=== PATIENT | female | born 1965 ===

== ENCOUNTER 2018-03-12 17:16 | Inpatient (IN) | payer MEDICAID, OTHER ==
[2018-03-12 17:44] VITALS: O2SAT 99
--- NOTE | 2018-03-12 19:19 | ED PDOC ---
HPI: Psych/Substance Abuse Time Seen by Provider: 03/12/18 18:03 Chief Complaint (Nursing): Psychiatric Evaluation Chief Complaint (Provider): Psychiatric evaluation History Per: Patient History/Exam Limitations: no limitations Additional Complaint(s): 53yo female, comes to ER stating she is depressed and has been having suicidal ideation x 1 week. She also reports left sided abdominal pain but denies any nausea, vomiting, or diarrhea. Patient is tearful during interview. Otherwise, she offers no additional medical complaints. Past Medical History Reviewed: Historical Data, Nursing Documentation, Vital Signs Vital Signs: Last Vital Signs Temp 98.8 F 03/12/18 17:40 Pulse 84 03/12/18 17:40 Resp 18 03/12/18 17:40 BP 142/85 03/12/18 17:40 Pulse Ox 99 03/12/18 17:40 - Medical History PMH: Depression - Surgical History Surgical History: No Surg Hx - Family History Family History: States: No Known Family Hx - Allergies Allergies/Adverse Reactions: Allergies Allergy/AdvReac Type Severity Reaction Status Date / Time No Known Allergies Allergy Verified 03/12/18 17:41 Review of Systems ROS Statement: Except As Marked, All Systems Reviewed And Found Negative Constitutional: Negative for: Fever, Chills Gastrointestinal: Negative for: Nausea, Vomiting, Abdominal Pain, Diarrhea Psych: Positive for: Depression, Suicidal ideation Physical Exam - Reviewed Nursing Documentation Reviewed: Yes Vital Signs Reviewed: Yes - Physical Exam Appears: Positive for: Non-toxic Head Exam: Positive for: ATRAUMATIC, NORMAL INSPECTION, NORMOCEPHALIC Skin: Positive for: Normal Color, Warm, DRY Eye Exam: Positive for: Normal appearance Neck: Positive for: Supple Cardiovascular/Chest: Positive for: Regular Rate, Rhythm Respiratory: Positive for: Normal Breath Sounds Gastrointestinal/Abdominal: Positive for: Tenderness (left abdominal tenderness) . Negative for: Mass, Guarding, Rebound Back: Positive for: Normal Inspection Extremity: Positive for: Normal ROM. Negative for: Pedal Edema Neurologic/Psych: Positive for: Alert, Oriented, Mood/Affect (tearful). Negative for: Motor/Sensory Deficits - Laboratory Results Result Diagrams: 03/12/18 19:15 03/12/18 19:15 - ECG O2 Sat by Pulse Oximetry: 99 (RA) Pulse Ox Interpretation: Normal Medical Decision Making Medical Decision Making: Impression: Abdominal pain, psychiatric evaluation Plan: * Labs * EKG * CT Abdomen/pelvis w/ IV contrast * Urinalysis * Chest x-ray Labs normal. Abdominal CT normal. Crisis evaluation completed. Scribe Attestation: Documented by Lashawn Edouard acting as a scribe for LUI Morales. Provider Attestation: All medical record entries made by the Scribe were at my direction and personally dictated by me. I have reviewed the chart and agree that the record accurately reflects my personal performance of the history, physical exam, medical decision making, and the department course for this patient. I have also personally directed, reviewed, and agree with the discharge instructions and disposition. Disposition - Clinical Impression Clinical Impression: Depression - Patient ED Disposition Is Patient to be Admitted: Yes Counseled Patient/Family Regarding: Diagnosis, Need For Followup - Disposition Disposition Time: 21:58 Condition: STABLE Instructions: Depression Forms: Agent Panda (Telugu) - Pt Status Changed To: Hospital Disposition Of: Inpatient - Admit Certification Admit to Inpatient:: After my assessment, the patient will require hospitalization for at least two midnights. This is because of the severity of symptoms shown, intensity of services needed, and/or the medical risk in this patient being treated as an outpatient. - POA Present On Arrival: None
[2018-03-12 19:20] LABS: HEMOGLOBIN 13.8 g/dL (12.0-16.0); MEAN CELL VOLUME 88.9 fl (81.0-99.0); MEAN CORPUSCULAR HEMOGLOBIN 30.3 pg (27.0-31.0); MEAN CORPUSCULAR HGB CONC 34.1 g/dL (33.0-37.0); RBC 4.55 Mil/uL (3.80-5.20); WHITE BLOOD COUNT 6.9 K/uL (4.8-10.8)
[2018-03-12 19:22] LABS: SQUAMOUS EPITHIAL 1 /hpf (0-5); URINE BACTERIA RARE (<OCC); URINE BILIRUBIN NEGATIVE (NEGATIVE); URINE CLARITY CLEAR (Clear); URINE COLOR YELLOW (YELLOW); URINE GLUCOSE (UA) NEG (Normal); URINE LEUKOCYTE ESTERASE NEG Leu/uL (Negative); URINE PROTEIN NEGATIVE (NEGATIVE); URINE UROBILINOGEN 0.2-1.0 mg/dL (0.2-1.0)
[2018-03-12 19:23] LABS: URINE BLOOD SMALL (NEGATIVE)
[2018-03-12 19:28] LABS: ALB/GLOB RATIO 1.1 (1.0-2.1); ALBUMIN 3.9 g/dL (3.5-5.0); ALT/SGPT 43 U/L (9-52); AST/SGOT 34 U/L (14-36); BLOOD UREA NITROGEN 13 mg/dl (7-17); CALCIUM 8.9 mg/dL (8.4-10.2); GFR NON-AFRICAN AMERICAN > 60
[2018-03-12 19:43] LABS: BARBITURATES, UR NEGATIVE (NEGATIVE); BENZODIAZEPINES, UR NEGATIVE (NEGATIVE); OPIATES, UR NEGATIVE (NEGATIVE); PHENCYCLIDINE, UR NEGATIVE (NEGATIVE)
[2018-03-12] MEDS ORDERED: Sodium Chloride 0.9% 50 ML IV ONE (20:30)
[2018-03-12] MEDS ORDERED: Iohexol 300 100 ML IJ ONE (20:30)
[2018-03-12] MEDS ORDERED: Alum-Mag Hydrox-Simethicone Susp (30 mL) PO PRN (22:58)
[2018-03-12] MEDS ORDERED: DiphenhydrAMINE 50 mg/ml Inj IM PRN (22:58)
[2018-03-12] MEDS ORDERED: Magnesium Hydroxide Susp 30 ml UD PO PRN (22:58)
--- NOTE | 2018-03-12 23:08 | PCM.BM ---
<Avtar De La Cruz - Last Filed: 03/12/18 23:21> Treatment Plan Problems - Problems identified on initial assessmt Hopelessness/Helplessness Date Initiated: 03/12/18 Time Initiated: 23:07 Status: Active Feelings of Worthlessness Date Initiated: 03/12/18 Time Initiated: 23:07 Assessment reference: NA Status: Active Altered Sleep Patterns Date Initiated: 03/12/18 Time Initiated: 23:07 Assessment reference: NA Status: Active Command/Auditory Hallucinations Date Initiated: 03/12/18 Time Initiated: 23:22 Assessment reference: NA Status: Active Visual Hallucinations Date Initiated: 03/12/18 Time Initiated: 23:22 Assessment reference: NA Status: Active Treatment assets and liabiliti Patient Assests: cooperative, ADL independent, physically healthy, good support system, negotiates basic needs Patient Liabilities: language/speech - Milieu Protocol Maintain good personal hygiene: every shift Encourage regular showers, every shift Remind patient to perform daily oral care, every shift Assist patient to perform ADL's Maintain personal safety: daily Educate patient to report safety concerns to staff, daily Monitor environment for contraband/sharps Medication safety: Monitor for expected outcome, potential side effects: daily, Assess barriers to learning: daily, Assess readiness for medication education: daily <Linh Chadwick - Last Filed: 03/13/18 09:57> - Diagnosis (1) Major depressive disorder with psychotic features Status: Acute Interventions: Medication management, Individual and group therapy, Psychoeducation 03/13/18 09:58 <Kristine Strong - Last Filed: 03/14/18 16:30> Family Contact Family involvement: Family/SO is involved Family contact: Patient agrees to contact, Family has been contacted by patient, Telephone contact initiated by staff Family contact name: Elizabeth -sister Family contacted how many times per week?: 2 Family contact comment: [phone] - Goals for Treatment Patient goals for treatment: Pt to be encouraged to attend activity and clinical groups 3-5x per week to decrease symptoms of paranoia, delusions and employ reality testing. Pt to be encouraged to participate in group milieu to develop coping skills to reduce psychiatric hospitalizations and further decompensation. Coordinate discharge resources needs by providing referral for psychiatric treatment follow up in the community. Discharge/Continuing Care - Education Needs Education Needs: Family Medication, Family Diagnosis/Disease Process, Family Coping Skills, Family Placement options, Family Community resources, Family Activities of Daily Living, Family Health Practices/Safety, Family Personal Hygiene/Grooming, Family Aftercare Safety Plan, Patient Medication, Patient Diagnosis/Disease Process, Patient Coping Skills, Patient Placement options, Patient Community resources, Patient Activities of Daily Living, Patient Health Practices/Safety, Patient Personal Hygiene/Grooming, Patient Aftercare Safety Plan - Discharge Discharge Criteria: Tolerates medication w/o severe side effects, Free of paranoid thoughts, Free of agitation, Normal sleep pattern, Ability to care for self, Reduction of target symptoms Discharge to:: Home - Additional Comments 03/14/18 16:25 Pt seen and discussed in team meeting note. Pt's reason for hospitalization reviewed and discussed. Pt reported being referred tot hospital due to "I felt really bad." Pt reported feeling "bad." Pt advised to further describe "bad." Pt reported "like sadness." Pt presents with flat affect and tearful. Pt asking the doctor if she will be cured. Pt reported visual hallucinations stating she saw shadows this morning of a man in a wheelchair. Pt denied auditory hallucinations. Pt's social and medical issues reviewed. Pt reported having poor social support as most of her family reside in [place]. Pt reported she has one sister who she communicates often withRossana Johnson ([phone]). Pt reported no hx of psychiatric treatment in the , only in [place]. Pt's medications reviewed and discussed. Tx plan reviewed and pt verbalized agreement. SW to continue to follow case. Pt signed release consent form for fiction and nonfiction writer prose to contact her sisterElizabeth for additional information. - Treatment Team Participation Discussed with Family/SO: No Was Patient/Family/SO present at Treatment Team Meeting: Yes
[2018-03-13 08:22] LABS: T4 8.73 ug/dl (5.5-11.0)
--- NOTE | 2018-03-13 08:38 | RAD ---
Date of service: 03/12/2018 HISTORY: SI COMPARISON: No prior. FINDINGS: LUNGS: The lungs are well inflated and clear. PLEURA: No significant pleural effusion identified, no pneumothorax apparent. CARDIOVASCULAR: Normal. OSSEOUS STRUCTURES: No significant abnormalities. VISUALIZED UPPER ABDOMEN: Normal. OTHER FINDINGS: None. IMPRESSION: No active pulmonary disease.
--- NOTE | 2018-03-13 09:09 | CARD ---
APPROVED REPORT Date of service: 03/12/2018 <Conclusion> Sinus bradycardia Low voltage QRS Cannot rule out Inferior infarct, age undetermined T wave abnormality, consider lateral ischemia Abnormal ECG
--- NOTE | 2018-03-13 10:04 | PCM.PSYCH ---
Initial Psychiatric Evaluation - Initial Psychiatric Evaluation Type of Admission: Voluntary Legal Status: Capacity Chief Complaint (in patient's own words): "I'm depressed." Patient's Reaction to Hospitalization: HPI: 53 yo female, presents w/ worsening depression, daily panic attacks, anxiety, poor concentration, CAH of a man telling her to grab her kitchen knives and kill herself and VH of this man. +Poor sleep +Poor concentration +Hopelessness. She states that she has suicidal thoughts, but does not want to act on them because of her druze beliefs. Patient was tearful and distraught during interview. PPHx: H/o treatment w/ Prozac >1 yr ago from her PMD in [place]; no h/o psychiatric hospitalization or suicide attempts MHx: Allergies SHx: Lives alone, from [place], denies drugs/etoh/cig use; 1 adult daughter and two grandchildren in [place]; Denies h/o abuse; Works as a vocational education teacher; completed high school ALL: Fish, Shellfish, Iodine FHx: Mothers/sisters/aunts w/ Depression and Anxiety Current Medications: Active Medications Generic Name Dose Route Start Last Admin Trade Name Freq PRN Reason Stop Dose Admin Acetaminophen 650 mg 03/12/18 22:58 Tylenol 325mg Tab PO Q4 PRN Pain, moderate (4-7) Al Hydrox/Mg Hydrox/Simethicone 30 ml 03/12/18 22:58 Maalox Plus 30 Ml PO Q4 PRN Dyspepsia Diphenhydramine HCl 50 mg 03/12/18 22:58 Benadryl IM Q6 PRN Extrapyramidal S/S Unable PO Diphenhydramine HCl 50 mg 03/12/18 22:58 Benadryl PO Q6 PRN Extrapyramidal Symptoms Diphenhydramine HCl 50 mg 03/12/18 23:03 Benadryl PO HS PRN Sleep Fluoxetine HCl 20 mg 03/13/18 09:45 Prozac PO DAILY COLLEEN Haloperidol 5 mg 03/12/18 22:58 Haldol PO Q4 PRN Agitation Haloperidol Lactate 5 mg 03/12/18 22:58 Haldol IM Q4 PRN Agitation, Unable to Take PO Lorazepam 1 mg 03/12/18 22:58 Ativan IM Q8 PRN Anxiety/Agitation,Unable PO Lorazepam 1 mg 03/12/18 22:58 Ativan PO Q8 PRN Anxiety/Agitation Magnesium Hydroxide 30 ml 03/12/18 22:58 Milk Of Magnesia PO HS PRN Constipation Risperidone 0.5 mg 03/13/18 22:00 Risperdal Tab PO HS [facility] Past Psychiatric History - Past Psychiatric History Pertinent Medical Hx (Current Medical&Sleep Prob, Allergies): Allergies Allergy/AdvReac Type Severity Reaction Status Date / Time FISH Allergy RASH Verified 03/12/18 23:37 iodine Allergy RASH Verified 03/12/18 23:37 Ketotifen Fumarate [Zaditor] 1 drop OU PRN PRN 03/12/18 Review of Systems - Menstruation Menstruation: Menopausal - Psychiatric Psychiatric: As Per HPI, Abnormal Sleep Pattern, Anhedonia, Anxiety, Auditory Hallucinations, Behavioral Changes, Change in Appetite, Depression, Difficulty Concentrating, Hopelessness, Irritability, Mood Swings, Suicidal Ideation, Visual Hallucinations Mental Status Examination - Personal Presentation Personal Presentation: Looks stated age - Affect Affect: Blunted, Depressed - Motor Activity Motor Activity: Calm - Reliability in Providing Information Reliability in Providing Information: Fair - Speech Speech: Organized, Coherent - Mood Mood: Depressed, Anxious - Formal Thought Process Formal Thought Process: Hallucinations - Hallucinations/Delusions Hallucinations: Auditory - Obsessions/Compulsions Obsessions: No Compulsions: No - Cognitive Functions Orientation: Person, Place, Situation, Time Sensorium: Alert Attention/Concentration: Attentive Judgement: Intact, as evidence by: Insight regarding need for hospitalization Memory: Recent intact, as evidence by: Ability to recall events of the day, Recent impaired, as evidence by: Inability to recall events of the day, Recent imparied as evidence by:Inability to complete 3/3 object recall - Risk Risk: Suicidal, Diminished functioning - Strength & Assets Inventory Strength & Assets Inventory: Intelligence, Life experience, Cooperative - Limitations Limitations: Living alone DSM 5 DX - DSM 5 DSM 5 Diagnosis: Major Depressive Disorder w/ Psychotic Features - Recommended/Plan of Treatment Treatment Recommendations and Plan of Treatment: Major Depressive Disorder w/ Psychotic Features -Admit to psychiatry unit -Individual and group therapy -Psychoeducation -Start Prozac 20 mg PO Daily, patient states it was effective in the past and would like to restart this medication -Start Risperdal 0.5 mg PO HS -Medicine consult -Disposition planning Projected ELOS: 5-10 days Discharge Plan and Discharge Criteria: Discharge when patient is psychiatrically stable - Smoking Cessation Smoking Cessation Initiated: No Reason for not providing: Not indicated
--- NOTE | 2018-03-13 11:06 | CT ---
Date of service: 03/12/2018 PROCEDURE: CT Abdomen and Pelvis with contrast HISTORY: left sided abdominal pain COMPARISON: None. TECHNIQUE: Contrast dose: 90 mL Omnipaque 300 Radiation dose: Total exam DLP = 773.39 mGy-cm. This CT exam was performed using one or more of the following dose reduction techniques: Automated exposure control, adjustment of the mA and/or kV according to patient size, and/or use of iterative reconstruction technique. FINDINGS: LOWER THORAX: There is dependent atelectasis in the lung bases. There is a small calcified granuloma in the right lateral lung base. Also noted is a tiny calcified granuloma in the left lateral lung base. LIVER: There is mild hepatomegaly. Homogeneous enhancement in the liver. No intrahepatic biliary ductal dilatation. No focal mass. GALLBLADDER AND BILE DUCTS: There are no calcified gallstones. No biliary dilatation. PANCREAS: Normal in size with homogeneous enhancement. No ductal dilatation or mass. SPLEEN: Normal in size and appearance. ADRENALS: No discrete nodule. KIDNEYS AND URETERS: Normal in size with homogeneous enhancement. No hydronephrosis. No solid mass. VASCULATURE: No aortic aneurysm. BOWEL: The small bowel loops are normal in caliber. The colon is unremarkable. No bowel dilatation or obstruction APPENDIX: Normal appendix. PERITONEUM: No free fluid. No free air. LYMPH NODES: No enlarged lymph nodes. BLADDER: Well distended and normal in appearance. REPRODUCTIVE: The uterus is normal in size. BONES: No acute fracture. Within normal limits for the patient's age. OTHER FINDINGS: None. IMPRESSION: No acute abdominal or pelvic abnormality. Mild hepatomegaly. A preliminary report was provided by [facility].
--- NOTE | 2018-03-13 15:52 | CP.PCM.CON ---
History of Present Illness - History of Present Illness History of Present Illness: cc: consult for medical clearance HPI: 53 y/o female here with hearing voices and depression. Offers complaints of chronic abdominal pain, and constipation. She denies diarrhea, fevers chills, has had this pain left upper quadrant and to the left side, denies nausea, vomiting. pain constant and associated with constipation. she also complains of dysruia, no increased frequency, no hesitancy. PMH: none Past surgical history: none Past social: no drugs no alcohol non smoker Medications: none FH: DM-2 sister Hypertension - mother Allergies: seafood iodine Review of Systems - Review of Systems All systems: reviewed and no additional remarkable complaints except Review of Systems: except HPI Past Patient History - Past Social History Smoking Status: Never Smoked Alcohol: None Drugs: Denies - CARDIAC Hx Cardiac Disorders: No Hx Hypertension: No - PULMONARY Hx Tuberculosis: No - NEUROLOGICAL HX Cerebrovascular Accident: No Hx Seizures: No - HEENT Hx HEENT Problems: No - RENAL Hx Chronic Kidney Disease: No - ENDOCRINE/METABOLIC Hx Endocrine Disorders: No - HEMATOLOGICAL/ONCOLOGICAL Hx Cancer: No Hx Human Immunodeficiency Virus (HIV): No - INTEGUMENTARY Hx Dermatological Problems: No - MUSCULOSKELETAL/RHEUMATOLOGICAL Hx Musculoskeletal Disorders: No - GENITOURINARY/GYNECOLOGICAL Hx Sexually Transmitted Disorders: No - PSYCHIATRIC Hx Substance Use: No Meds Allergies/Adverse Reactions: Allergies Allergy/AdvReac Type Severity Reaction Status Date / Time FISH Allergy RASH Verified 03/12/18 23:37 iodine Allergy RASH Verified 03/12/18 23:37 - Medications Medications: Current Medications Acetaminophen (Tylenol 325mg Tab) 650 mg PO Q4 PRN PRN Reason: Pain, moderate (4-7) Al Hydrox/Mg Hydrox/Simethicone (Maalox Plus 30 Ml) 30 ml PO Q4 PRN PRN Reason: Dyspepsia Bisacodyl (Dulcolax) 5 mg PO DAILY COLLEEN Stop: 03/16/18 09:01 Diphenhydramine HCl (Benadryl) 50 mg IM Q6 PRN PRN Reason: Extrapyramidal S/S Unable PO Diphenhydramine HCl (Benadryl) 50 mg PO Q6 PRN PRN Reason: Extrapyramidal Symptoms Diphenhydramine HCl (Benadryl) 50 mg PO HS PRN PRN Reason: Sleep Docusate Sodium (Colace) 100 mg PO BID [facility] Fluoxetine HCl (Prozac) 20 mg PO DAILY COLLEEN Last Admin: 03/13/18 12:08 Dose: 20 mg Lorazepam (Ativan) 1 mg IM Q8 PRN PRN Reason: Anxiety/Agitation,Unable PO Lorazepam (Ativan) 0.5 mg PO Q6 PRN PRN Reason: Anxiety Last Admin: 03/13/18 12:26 Dose: 0.5 mg Magnesium Hydroxide (Milk Of Magnesia) 30 ml PO HS PRN PRN Reason: Constipation Risperidone (Risperdal Tab) 0.5 mg PO HS COLLEEN Physical Exam - Constitutional Appears: Well - Head Exam Head Exam: ATRAUMATIC, NORMAL INSPECTION, NORMOCEPHALIC - Eye Exam Eye Exam: EOMI, Normal appearance, PERRL Pupil Exam: NORMAL ACCOMODATION, PERRL - ENT Exam ENT Exam: Mucous Membranes Moist, Normal Exam - Neck Exam Neck exam: Positive for: Normal Inspection - Respiratory Exam Respiratory Exam: Clear to Auscultation Bilateral, NORMAL BREATHING PATTERN - Cardiovascular Exam Cardiovascular Exam: REGULAR RHYTHM - GI/Abdominal Exam GI & Abdominal Exam: Normal Bowel Sounds, Soft, Tenderness Additional comments: left lower quadrant and left side flank no rebound - Extremities Exam Extremities exam: Positive for: normal inspection - Back Exam Back exam: NORMAL INSPECTION - Neurological Exam Neurological exam: Alert, CN II-XII Intact, Oriented x3 - Psychiatric Exam Psychiatric exam: Depressed - Skin Skin Exam: Intact, Normal Color, Warm Results - Vital Signs Recent Vital Signs: Last Vital Signs Temp 97.2 F L 03/13/18 05:36 Pulse 65 03/13/18 05:36 Resp 18 03/13/18 05:36 BP 125/72 03/13/18 05:36 Pulse Ox 99 03/12/18 22:30 - Labs Result Diagrams: 03/12/18 19:15 03/12/18 19:15 Labs: Laboratory Results - last 24 hr 03/12/18 03/12/18 03/12/18 19:15 19:15 19:15 WBC 6.9 RBC 4.55 Hgb 13.8 Hct 40.4 MCV 88.9 MCH 30.3 MCHC 34.1 RDW 15.0 H Plt Count 298 Sodium 139 Potassium 3.7 Chloride 106 Carbon Dioxide 26 Anion Gap 11 BUN 13 Creatinine 0.8 Est GFR ( Amer) > 60 Est GFR (Non-Af Amer) > 60 Random Glucose 115 H Hemoglobin A1c Calcium 8.9 Total Bilirubin 0.6 AST 34 ALT 43 Alkaline Phosphatase 66 Total Protein 7.4 Albumin 3.9 Globulin 3.5 Albumin/Globulin Ratio 1.1 Triglycerides Cholesterol LDL Cholesterol Direct HDL Cholesterol Thyroxine (T4) TSH 3rd Generation Urine Color Urine Clarity Urine pH Ur Specific Lebo Urine Protein Urine Glucose (UA) Urine Ketones Urine Blood Urine Nitrate Urine Bilirubin Urine Urobilinogen Ur Leukocyte Esterase Urine RBC (Auto) Urine Microscopic WBC Ur Squamous Epith Cells Urine Bacteria Urine Opiates Screen Negative Urine Methadone Screen Negative Ur Barbiturates Screen Negative Ur Phencyclidine Scrn Negative Ur Amphetamines Screen Negative U Benzodiazepines Scrn Negative U Oth Cocaine Metabols Negative U Cannabinoids Screen Negative Alcohol, Quantitative < 10 03/12/18 03/13/18 03/13/18 19:15 07:42 07:42 WBC RBC Hgb Hct MCV MCH MCHC RDW Plt Count Sodium Potassium Chloride Carbon Dioxide Anion Gap BUN Creatinine Est GFR ( Amer) Est GFR (Non-Af Amer) Random Glucose Hemoglobin A1c 6.0 Calcium Total Bilirubin AST ALT Alkaline Phosphatase Total Protein Albumin Globulin Albumin/Globulin Ratio Triglycerides 77 Cholesterol 159 LDL Cholesterol Direct 83 HDL Cholesterol 51 Thyroxine (T4) 8.73 TSH 3rd Generation 1.71 Urine Color Yellow Urine Clarity Clear Urine pH 6.0 Ur Specific Lebo 1.017 Urine Protein Negative Urine Glucose (UA) Neg Urine Ketones Negative Urine Blood Small Urine Nitrate Negative Urine Bilirubin Negative Urine Urobilinogen 0.2-1.0 Ur Leukocyte Esterase Neg Urine RBC (Auto) 5 H Urine Microscopic WBC 1 Ur Squamous Epith Cells 1 Urine Bacteria Rare Urine Opiates Screen Urine Methadone Screen Ur Barbiturates Screen Ur Phencyclidine Scrn Ur Amphetamines Screen U Benzodiazepines Scrn U Oth Cocaine Metabols U Cannabinoids Screen Alcohol, Quantitative Assessment & Plan - Assessment and Plan (Free Text) Assessment: 53 y/o female with no pmh here with depression and hearing voices 1. abdominal pain - "complains of hernia" none on exam and none on ct scan abd pelvic report reviewed. Stool seen through out the colon likely cause constipation - recommend stool softners and laxative. 2. dysuria: - ua negative will repeat ua if continues
[2018-03-13 19:01] LABS: SQUAMOUS EPITHIAL < 1 /hpf (0-5); URINE BILIRUBIN NEGATIVE (NEGATIVE); URINE BLOOD SMALL (NEGATIVE); URINE CLARITY CLEAR (Clear); URINE COLOR COLORLESS (YELLOW); URINE GLUCOSE (UA) NEG (Normal); URINE LEUKOCYTE ESTERASE NEG Leu/uL (Negative); URINE PROTEIN NEGATIVE (NEGATIVE); URINE UROBILINOGEN 0.2-1.0 mg/dL (0.2-1.0)
[2018-03-13 19:04] LABS: URINE BACTERIA NEG (<OCC)
[2018-03-14] MEDS: Bisacodyl 5mg EC Tab PO SCH (08:44)
--- NOTE | 2018-03-14 10:43 | PCM.PYCHPN ---
Psychiatric Progress Note - Psychiatric Progress Note Patient seen today, length of contact: Pt evaluated, case discussed w/ team, chart reviewed Patient Chief Complaint: "I'm depressed." Problems Identified/Issues Discussed: Patient continues to report severe depression w/ feelings of hopelessness, low energy, poor sleep/appetite. She denies acute AH, but reports VH of shadows and of the man in the wheelchair. Medication Change: Yes (Increase Risperdal) Medical Record Reviewed: Yes Consults ordered or reviewed: Medicine consult Mental Status Examination - Cognitive Function Orientation: Person, Place, Situation, Time Memory: Intact Attention: WNL Concentration: WNL Association: [facility] Fund of Knowledge: [facility] Decription of patient's judgement and insights: Fair I/J - Mood Mood: Depressed, Anxious - Affect Affect: Blunted, Depressed - Speech Speech: Soft - Formal Thought Process Formal Thought Process: Hallucinations Psychotic Thoughts and Behaviors: +VH - Suicidal Ideation Suicidal Ideation: No - Homicidal Ideation Homicidal Ideation: No Goal/Treatment Plan - Goal/Treatment Plan Need for Continued Stay: Remain at risks for inpatient hospitalization, Severe depression anxiety, Discharge may exacerbated symptoms Progress Toward Problem(s) and Goals/Treatment Plan: Major Depressive Disorder w/ Psychotic Features -Individual and group therapy -Psychoeducation -Continue Prozac 20 mg PO Daily -Increase Risperdal to 1 mg PO HS -Medicine consult -Disposition planning Estimated Date of D/C: 03/19/18
[2018-03-15] MEDS: Bisacodyl 5mg EC Tab PO SCH (08:53)
--- NOTE | 2018-03-15 11:32 | PCM.PYCHPN ---
Psychiatric Progress Note - Psychiatric Progress Note Patient seen today, length of contact: Pt evaluated, case discussed w/ team, chart reviewed Patient Chief Complaint: "I'm depressed." Problems Identified/Issues Discussed: Patient continues to report depression w/ low energy, poor sleep/appetite. She denies current AH/VH and is less anxious about the psychotic symptoms she experienced recently. No adverse effects to medications reported. Medication Change: No Medical Record Reviewed: Yes Consults ordered or reviewed: Medicine consult Mental Status Examination - Cognitive Function Orientation: Person, Place, Situation, Time Memory: Intact Attention: WNL Concentration: WNL Association: WNL Fund of Knowledge: [facility] Decription of patient's judgement and insights: Fair I/J - Mood Mood: Depressed, Anxious - Affect Affect: Blunted, Depressed - Speech Speech: Soft - Formal Thought Process Formal Thought Process: No Impairment Psychotic Thoughts and Behaviors: No AH/VH/paranoia/delusions - Suicidal Ideation Suicidal Ideation: No - Homicidal Ideation Homicidal Ideation: No Goal/Treatment Plan - Goal/Treatment Plan Need for Continued Stay: Remain at risks for inpatient hospitalization, Severe depression anxiety, Discharge may exacerbated symptoms Progress Toward Problem(s) and Goals/Treatment Plan: Major Depressive Disorder w/ Psychotic Features -Individual and group therapy -Psychoeducation -Continue Prozac 20 mg PO Daily -Continue Risperdal 1 mg PO HS -Medicine consult -Disposition planning Estimated Date of D/C: 03/19/18
[2018-03-16] MEDS: Bisacodyl 5mg EC Tab PO SCH (08:35)
--- NOTE | 2018-03-16 09:33 | PCM.PYCHPN ---
Psychiatric Progress Note - Psychiatric Progress Note Patient seen today, length of contact: Pt evaluated, case discussed w/ team, chart reviewed Patient Chief Complaint: "I'm depressed." Problems Identified/Issues Discussed: Patient continues to report feeling depressed and tearful w/ low energy and poor sleep. She denies current AH/VH, but continues to feel anxious and preoccupied, especially at night. No adverse effects to medications reported. Medication Change: No Medical Record Reviewed: Yes Consults ordered or reviewed: Medicine consult Mental Status Examination - Cognitive Function Orientation: Person, Place, Situation, Time Memory: Intact Attention: WNL Concentration: WNL Association: WN Fund of Knowledge: [facility] Decription of patient's judgement and insights: Fair I/J - Mood Mood: Depressed, Anxious - Affect Affect: Constricted, Depressed - Speech Speech: Soft - Formal Thought Process Formal Thought Process: No Impairment Psychotic Thoughts and Behaviors: No AH/VH/paranoia/delusions - Suicidal Ideation Suicidal Ideation: No - Homicidal Ideation Homicidal Ideation: No Goal/Treatment Plan - Goal/Treatment Plan Need for Continued Stay: Remain at risks for inpatient hospitalization, Severe depression anxiety, Discharge may exacerbated symptoms Progress Toward Problem(s) and Goals/Treatment Plan: Major Depressive Disorder w/ Psychotic Features -Individual and group therapy -Psychoeducation -Continue Prozac 20 mg PO Daily -Continue Risperdal 1 mg PO HS -Medicine consult -Disposition planning Estimated Date of D/C: 03/19/18
--- NOTE | 2018-03-17 10:53 | PCM.PYCHPN ---
Psychiatric Progress Note - Psychiatric Progress Note Patient seen today, length of contact: Pt evaluated, case discussed w/ team, chart reviewed Patient Chief Complaint: "I'm depressed." Problems Identified/Issues Discussed: Patient continues to report feeling depressed and anxious. She reports that she had improved sleep last night. She denies current AH/VH/paranoia/ delusiosn. No adverse effects to medications reported. Medication Change: No Medical Record Reviewed: Yes Consults ordered or reviewed: Medicine consult Mental Status Examination - Cognitive Function Orientation: Person, Place, Situation, Time Memory: Intact Attention: WNL Concentration: WNL Association: [facility] Fund of Knowledge: [facility] Decription of patient's judgement and insights: Fair I/J - Mood Mood: Depressed, Anxious - Affect Affect: Constricted, Depressed - Speech Speech: Soft - Formal Thought Process Formal Thought Process: No Impairment Psychotic Thoughts and Behaviors: No AH/VH/paranoia/delusions - Suicidal Ideation Suicidal Ideation: No - Homicidal Ideation Homicidal Ideation: No Goal/Treatment Plan - Goal/Treatment Plan Need for Continued Stay: Remain at risks for inpatient hospitalization, Severe depression anxiety, Discharge may exacerbated symptoms Progress Toward Problem(s) and Goals/Treatment Plan: Major Depressive Disorder w/ Psychotic Features -Individual and group therapy -Psychoeducation -Continue Prozac 20 mg PO Daily -Continue Risperdal 1 mg PO HS -Medicine consult -Disposition planning Estimated Date of D/C: 03/20/18
--- NOTE | 2018-03-18 09:02 | PCM.PYCHPN ---
Psychiatric Progress Note - Psychiatric Progress Note Patient seen today, length of contact: Pt evaluated, case discussed w/ team, chart reviewed Patient Chief Complaint: "I'm depressed." Problems Identified/Issues Discussed: Patient continues to report feeling depressed and anxious, with the anxiety worse at night. She reports difficulty sleeping at night. She denies current AH/VH/paranoia/delusions. No adverse effects to medications reported. Medication Change: No Medical Record Reviewed: Yes Consults ordered or reviewed: Medicine consult Mental Status Examination - Cognitive Function Orientation: Person, Place, Situation, Time Memory: Intact Attention: WNL Concentration: WNL Association: WN Fund of Knowledge: [facility] Decription of patient's judgement and insights: Fair I/J - Mood Mood: Depressed, Anxious - Affect Affect: Constricted, Depressed - Speech Speech: Soft - Formal Thought Process Formal Thought Process: No Impairment Psychotic Thoughts and Behaviors: No AH/VH/paranoia/delusions - Suicidal Ideation Suicidal Ideation: No - Homicidal Ideation Homicidal Ideation: No Goal/Treatment Plan - Goal/Treatment Plan Need for Continued Stay: Remain at risks for inpatient hospitalization, Severe depression anxiety, Discharge may exacerbated symptoms Progress Toward Problem(s) and Goals/Treatment Plan: Major Depressive Disorder w/ Psychotic Features -Individual and group therapy -Psychoeducation -Continue Prozac 20 mg PO Daily -Continue Risperdal 1 mg PO HS -Medicine consult -Disposition planning Estimated Date of D/C: 03/20/18
--- NOTE | 2018-03-19 09:35 | PCM.PYCHPN ---
Psychiatric Progress Note - Psychiatric Progress Note Patient seen today, length of contact: Pt evaluated, case discussed w/ team, chart reviewed Patient Chief Complaint: "I'm depressed." Problems Identified/Issues Discussed: Patient reports that her mood is improving. She reports improved sleep and less anxiety. She denies current AH/VH/paranoia/delusions. No adverse effects to medications reported. Medication Change: No Medical Record Reviewed: Yes Consults ordered or reviewed: Medicine consult Mental Status Examination - Cognitive Function Orientation: Person, Place, Situation, Time Memory: Intact Attention: WNL Concentration: WNL Association: WNL Fund of Knowledge: [facility] Decription of patient's judgement and insights: Fair I/J - Mood Mood: Depressed - Affect Affect: Constricted - Speech Speech: Appropriate - Formal Thought Process Formal Thought Process: No Impairment Psychotic Thoughts and Behaviors: No AH/VH/paranoia/delusions - Suicidal Ideation Suicidal Ideation: No - Homicidal Ideation Homicidal Ideation: No Goal/Treatment Plan - Goal/Treatment Plan Need for Continued Stay: Severe depression anxiety, Discharge may exacerbated symptoms Progress Toward Problem(s) and Goals/Treatment Plan: Major Depressive Disorder w/ Psychotic Features -Individual and group therapy -Psychoeducation -Continue Prozac 20 mg PO Daily -Continue Risperdal 1 mg PO HS -Medicine consult -Disposition planning- likely discharge tomorrow if patient continues to improve clinically Estimated Date of D/C: 03/20/18
[2018-03-20 06:19] VITALS: BP 117/78; PULSE 60; RESP 18; TEMP 97.2
--- NOTE | 2018-03-20 08:32 | PCM.PYCHDC ---
Mental Status Examination - Mental Status Examination Orientation: Person, Place, Situation, Time Memory: Intact Mood: Neutral Affect: Broad Speech: Appropriate Attention: WNL Concentration: WNL Association: WNL Fund of Knowledge: WNL Formal Thought Process: No Impairment Description of patient's judgement and insight: Fair I/J Psychotic Thoughts and Behaviors: No AH/VH/paranoia/delusions Suicidal Ideation: No Current Homicidal Ideation?: No Discharge Summary - Discharge Note Reason for Hospitalization: HPI: 53 yo female, presents w/ worsening depression, daily panic attacks, anxiety, poor concentration, CAH of a man telling her to grab her kitchen knives and kill herself and VH of this man. +Poor sleep +Poor concentration +Hopelessness. She states that she has suicidal thoughts, but does not want to act on them because of her temple beliefs. Patient was tearful and distraught during interview. 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 Reason for request. 2. Findings. 3. Follow-up Consultations: Medicine consult Summary of Hospital Course include:: 1. Description of specific treatment plan utilized for patients during their course of treatmen. 2. Summarize the time- course for resolution of acute symptoms and/or regressed behaviors. 3. Describe issues identified and worked on during hospitalization. 4. Describe medication utilized. 5. Describe medical problems identified and treated. 6. Reassessment of suicide risk Summary of Hospital Course: Patient was admitted to the psychiatry unit. Individual and group therapy were provided. Patient was stabilized on Prozac 20 mg PO Daily and Risperdal 1 mg PO HS. She denies acute depression/anxiety/psychosis/SI/HI. She is psychiatrically stable for discharge at this time. - Diagnosis (1) Major depressive disorder with psychotic features Current Visit: Yes Status: Chronic - Final Diagnosis (DSM 5) Condition upon Discharge: STABLE DSM 5: Major Depressive Disorder w/ Psychotic Features Disposition: HOME/ ROUTINE Follow-up Treatment Plan: Major Depressive Disorder w/ Psychotic Features -Individual and group therapy -Psychoeducation -Continue Prozac 20 mg PO Daily -Continue Risperdal 1 mg PO HS -Medicine consult -Discharge to home with outpatient follow-up Prescriptions/Medication Reconciliation: Docusate [Colace] 100 mg PO BID #60 cap FLUoxetine [Prozac] 20 mg PO DAILY #30 cap LORazepam [Ativan] 0.5 mg PO DAILY PRN #14 tab PRN Reason: Anxiety risperiDONE [RisperDAL Tab] 1 mg PO HS #30 tab - Smoking Cessation Smoking Cessation Medication prescribed: No Reason for not providing: Not indicated - Antipsychotic Medications Pt discharged on 2 or more routine antipsychotic medications: No
== END 2018-03-20 11:00 | disposition home or self-care (01) | DRG 885 ==
LOC: H.ER 17:16 → H.ERHOLD 22:01 → H.STEP 22:46
PROVIDERS: ADMIT Psychiatry & Neurology Psychiatry; ATTEND Psychiatry & Neurology Psychiatry
PROC: GZHZZZZ Group Psychotherapy (ICD-10-PCS; principal; 2018-03-14)
PROC: GZ51ZZZ Individual Psychotherapy, Behavioral (ICD-10-PCS; 2018-03-14)
DX: F32.3 Major depressive disorder, single episode, severe with psychotic features (principal); R45.851 Suicidal ideations; F41.0 Panic disorder [episodic paroxysmal anxiety]; G89.29 Other chronic pain; K59.00 Constipation, unspecified; Z79.899 Other long term (current) drug therapy; G47.9 Sleep disorder, unspecified; R10.9 Unspecified abdominal pain; R44.1 Visual hallucinations; Z83.3 Family history of diabetes mellitus; Z82.49 Family history of ischemic heart disease and other diseases of the circulatory system

== ENCOUNTER 2018-06-26 03:23 | Emergency (ER) | payer SELFPAY ==
[2018-06-26] MEDS ORDERED: Sodium Chloride 0.9% 1,000 ML IV STA (05:58)
--- NOTE | 2018-06-26 05:59 | ED PDOC ---
HPI: Female Pain Time Seen by Provider: 06/26/18 05:00 Chief Complaint (Nursing): Female Genitourinary Chief Complaint (Provider): Female Genitourinary History Per: Patient History/Exam Limitations: no limitations Onset/Duration Of Symptoms: Days Current Symptoms Are (Timing): Still Present Additional Complaint(s): 53 y/o female with a PMHx of Depression with psychotic features presents to the ED for evaluation of hematuria, onset many days ago. Patient states symptoms worsened yesterday and became associated with pelvic pain, back pain and slight diarrhea thus prompting today's visit. Patient denies any nausea, vomiting, chest pain and shortness of breath. PMD: [facility] in [facility]. Past Medical History Reviewed: Historical Data, Nursing Documentation, Vital Signs Vital Signs: Last Vital Signs Temp 97.5 F L 06/26/18 04:28 Pulse 67 06/26/18 04:28 Resp 18 06/26/18 04:28 BP 144/89 06/26/18 04:28 Pulse Ox 98 06/26/18 04:28 - Medical History PMH: Depression Denies: Diabetes, Hepatitis, HIV, HTN, Chronic Kidney Disease, Seizures, Sexually Transmitted Disease - Surgical History Surgical History: No Surg Hx - Family History Family History: States: Unknown Family Hx - Social History Current smoker - smoking cessation education provided: No Alcohol: None Drugs: Denies - Home Medications Home Medications: Ambulatory Orders Medication Instructions Recorded RX: Docusate [Colace] 100 mg PO BID #60 cap 03/19/18 RX: FLUoxetine [Prozac] 20 mg PO DAILY #30 cap 03/19/18 RX: LORazepam [Ativan] 0.5 mg PO DAILY PRN #14 tab 03/19/18 RX: risperiDONE [RisperDAL Tab] 1 mg PO HS #30 tab 03/19/18 Sulfamethoxazole/Trimethoprim 1 tab PO BID #14 tab 06/26/18 [Bactrim DS 800 mg-160 mg] - Allergies Allergies/Adverse Reactions: Allergies Allergy/AdvReac Type Severity Reaction Status Date / Time FISH Allergy RASH Verified 06/26/18 04:28 shellfish derived Allergy RASH Verified 06/26/18 04:28 Review of Systems ROS Statement: Except As Marked, All Systems Reviewed And Found Negative Gastrointestinal: Positive for: Diarrhea. Negative for: Vomiting Genitourinary Female: Positive for: Hematuria, Pelvic Pain Musculoskeletal: Positive for: Back Pain Physical Exam - Reviewed Nursing Documentation Reviewed: Yes Vital Signs Reviewed: Yes - Physical Exam Appears: Positive for: No Acute Distress Head Exam: Positive for: ATRAUMATIC, NORMOCEPHALIC Skin: Positive for: Normal Color, Warm, Dry Eye Exam: Positive for: Normal appearance, EOMI, PERRL ENT: Positive for: Normal ENT Inspection Neck: Positive for: Normal, Painless ROM Cardiovascular/Chest: Positive for: Regular Rate, Rhythm. Negative for: Murmur Respiratory: Positive for: Normal Breath Sounds. Negative for: Respiratory Distress Gastrointestinal/Abdominal: Positive for: Normal Exam, Bowel Sounds, Soft. Negative for: Tenderness Back: Positive for: L CVA Tenderness (mild), R CVA Tenderness (mild) Extremity: Positive for: Normal ROM. Negative for: Pedal Edema, Deformity Neurologic/Psych: Positive for: Alert, Oriented. Negative for: Motor/Sensory Deficits - Laboratory Results Result Diagrams: 06/26/18 06:40 06/26/18 06:40 - ECG O2 Sat by Pulse Oximetry: 98 (RA) Pulse Ox Interpretation: Normal Medical Decision Making Medical Decision Making: Time: 0559 Plan: flank pain, hematuria, rule out stone, uti -- CT Abd/Pelvis w/o PO or IV Contrast -- CMP -- ED Urine Dipstick -- CBC with differentials -- Sodium Chloride 0.9% IV 999 mls/hr -- Toradol 15 mg IV -- Urine C&S -- Urinalysis Time:0615 Positive UTI results. Blood found in urine. Time: 0700 -- Patient endorsed to Dr. Lange, pending CT, ER workup and final ER disposition. Scribe Attestation: Documented by Crys Tavarez, acting as a scribe for Anny Lara MD. Provider Scribe Attestation: All medical record entries made by the Scribe were at my direction and personally dictated by me. I have reviewed the chart and agree that the record accurately reflects my personal performance of the history, physical exam, medical decision making, and the department course for this patient. I have also personally directed, reviewed, and agree with the discharge instructions and disposition. Disposition - Clinical Impression Clinical Impression: UTI (urinary tract infection) - Patient ED Disposition Is Patient to be Admitted: Transfer of Care - Disposition Disposition: Transfer of Care Disposition Time: 07:00 Condition: STABLE Prescriptions: Sulfamethoxazole/Trimethoprim [Bactrim DS 800 mg-160 mg] 1 tab PO BID #14 tab Instructions: Urinary Tract Infections in Adults Forms: [employer] (Hebrew) Print Language: SERBIAN Patient Signed Over To: Maria Teresa Lange Handoff Comments: Pending CT, ER workup and final ER disposition.
[2018-06-26 07:23] LABS: BASO # 0.1 K/uL (0.0-0.2); BASO % 0.5 % (0.0-2.0); EOS # 0.1 K/uL (0.0-0.7); EOS % 1.1 % (0.0-4.0); HEMOGLOBIN 14.1 g/dL (12.0-16.0); LYMPH # 1.9 K/uL (1.0-4.3); LYMPH % 15.2 % (20.0-40.0); MEAN CELL VOLUME 90.1 fl (81.0-99.0); MEAN CORPUSCULAR HEMOGLOBIN 29.3 pg (27.0-31.0); MEAN CORPUSCULAR HGB CONC 32.5 g/dL (33.0-37.0); MEAN PLATELET VOLUME 8.1 fl (7.2-11.7); MONO # 0.8 K/uL (0.0-0.8); MONO % 6.2 % (0.0-10.0); NEUT # 9.5 K/uL (1.8-7.0); RBC 4.82 Mil/uL (3.80-5.20); WHITE BLOOD COUNT 12.3 K/uL (4.8-10.8)
[2018-06-26 07:30] LABS: SQUAMOUS EPITHIAL 3 /hpf (0-5); URINE BACTERIA FEW (<OCC); URINE BILIRUBIN NEGATIVE (NEGATIVE); URINE BLOOD LARGE (NEGATIVE); URINE CLARITY CLOUDY (Clear); URINE COLOR RED (YELLOW); URINE GLUCOSE (UA) 50 mg/dL (NEGATIVE); URINE LEUKOCYTE ESTERASE MOD Leu/uL (Negative); URINE PROTEIN 100 mg/dL (NEGATIVE); URINE UROBILINOGEN 0.2-1.0 mg/dL (0.2-1.0)
[2018-06-26 07:35] LABS: ALB/GLOB RATIO 1.1 (1.0-2.1); ALBUMIN 4.2 g/dL (3.5-5.0); ALT/SGPT 38 U/L (9-52); AST/SGOT 41 U/L (14-36); BLOOD UREA NITROGEN 10 mg/dl (7-17); CALCIUM 9.2 mg/dL (8.4-10.2); GFR NON-AFRICAN AMERICAN > 60
--- NOTE | 2018-06-26 07:42 | ED PDOC ---
- Laboratory Results Result Diagrams: 06/26/18 06:40 06/26/18 06:40 - ECG O2 Sat by Pulse Oximetry: 98 (RA) Medical Decision Making Medical Decision Making: Time: 0700 --Patient endorsed to provider by Dr. Lara, pending CT results and ED work-up. Scribe Attestation: Documented by Riri Howard, acting as a scribe for Maria Teresa Lange MD. Provider Scribe Attestation: All medical record entries made by the Scribe were at my direction and pe rsonally dictated by me. I have reviewed the chart and agree that the record accurately reflects my personal performance of the history, physical exam, medical decision making, and the department course for this patient. I have also personally directed, reviewed, and agree with the discharge instructions and disposition. Disposition Doctor Will See Patient In The: Office Counseled Patient/Family Regarding: Diagnosis, Need For Followup, Rx Given - Clinical Impression Clinical Impression: UTI (urinary tract infection) - POA Present On Arrival: None - Disposition Disposition: Routine/Home Disposition Time: 10:00 Condition: STABLE Prescriptions: Sulfamethoxazole/Trimethoprim [Bactrim DS 800 mg-160 mg] 1 tab PO BID #14 tab Instructions: Urinary Tract Infections in Adults Forms: [employer] (Greek) Print Language: RWANDAN
--- NOTE | 2018-06-26 10:00 | CT ---
Date of service: 06/26/2018 PROCEDURE: CT Abdomen and Pelvis HISTORY: abd pain COMPARISON: Comparison made with CT scan abdomen pelvis 03/12/2018 TECHNIQUE: Contiguous helical/transaxial sections of the abdomen pelvis without oral or intravenous material. Additional 2D sagittal and coronal reformats generated Radiation dose: Total exam DLP = 885.37 mGy-cm. This CT exam was performed using one or more of the following dose reduction techniques: Automated exposure control, adjustment of the mA and/or kV according to patient size, and/or use of iterative reconstruction technique. FINDINGS: LOWER THORAX: U heart is mildly enlarged. Mild passive/dependent type atelectasis seen both lung bases. There is a small hiatal hernia. LIVER: Liver is enlarged measuring over 23 cm in CC dimension.. No gross lesion or ductal dilatation. GALLBLADDER AND BILE DUCTS: Unremarkable. PANCREAS: Unremarkable. No gross lesion or ductal dilatation. SPLEEN: Unremarkable. ADRENALS: Unremarkable. No mass. KIDNEYS AND URETERS: Unremarkable. No hydronephrosis. No solid mass. VASCULATURE: Unremarkable. No aortic aneurysm. No aortic atherosclerotic calcification or mural plaque present. BOWEL: Unremarkable. No obstruction. No gross mural thickening. APPENDIX: Normal appendix. PERITONEUM: Unremarkable. No free fluid. No free air. Small fat containing umbilical hernia. LYMPH NODES: Unremarkable. No enlarged lymph nodes. BLADDER: Urinary bladder is moderately distended. REPRODUCTIVE: Unremarkable. BONES: Mild multilevel degenerative spondylosis of the thoracic spine OTHER FINDINGS: None. IMPRESSION: Hepatomegaly as detailed above.
[2018-06-26] MEDS ORDERED: Tmp-Smz 800 mg-160 mg DS Tab PO STA (10:36)
[2018-06-26] MEDS ORDERED: Tmp-Smz 800 mg-160 mg DS Tab ONE (10:43)
[2018-06-26 10:51] VITALS: BP 141/92; PULSE 68; RESP 18; TEMP 98.5
[2018-06-26 23:43] VITALS: O2SAT 98
== END 2018-06-26 10:54 | disposition home or self-care (01) ==
LOC: H.ER 03:23
DX: N39.0 Urinary tract infection, site not specified (principal)
CPT/HCPCS: 74176; 80053; 81003; 81025; 85025; 87086; 96361; 96374; 99285; J1885; J7030